=== PATIENT | female | born 1965 | race Caucasian/White ===

== ENCOUNTER 2018-08-27 10:27 | Emergency (ER) | payer BC ==
[2018-08-27 10:49] VITALS: BP 115/73
--- NOTE | 2018-08-27 11:16 | UC ---
Ear Complaint HPI - HPI Summary HPI Summary: This is a 53-year-old female who is hypothyroid, who complains of feeling of wax in her right ear. She describes this as being under water. This is been going on for 2 days and hasn't changed. She denies recent upper respiratory infection or any trauma to the ear. Her vital signs are stable. - History of Current Complaint Chief Complaint: UCEar Stated Complaint: PLUGGED EAR Time Seen by Provider: 08/27/18 11:13 Hx Obtained From: Patient Pain Intensity: 0 - Allergies/Home Medications Allergies/Adverse Reactions: Allergies Allergy/AdvReac Type Severity Reaction Status Date / Time No Known Allergies Allergy Verified 08/27/18 10:50 Home Medications: Home Medications Folika-D 1,000-94.375 Mcg Tab 1 tab PO DAILY 08/27/18 [History Confirmed ] Levothyroxine TAB* [Synthroid TAB*] 100 mcg PO DAILY 08/27/18 [History Confirmed 08/27/18] Solifenacin Succinate [Vesicare] 5 mg PO DAILY 08/27/18 [History Confirmed 08/27] PMH/Surg Hx/FS Hx/Imm Hx - Additional Past Medical History Additional PMH: Past medical history includes gastric bypass approximately 15 years ago and cholecystectomy. Family history: Hypertension, cardiovascular disease, diabetes mellitus. 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 Previously Healthy: Yes - Surgical History Surgical History: Yes Surgery Procedure, Year, and Place: gastric bypass [facility] - Social History Alcohol Use: None Substance Use Type: None Smoking Status (MU): Never Smoked Tobacco Review of Systems All Other Systems Reviewed And Are Negative: Yes ENT: Positive: Other - right ear discomfort, feeling of water in her ear. Respiratory: Positive: Negative Cardiovascular: Positive: Negative Gastrointestinal: Positive: Negative Genitourinary: Positive: Negative Is Patient Immunocompromised?: No Physical Exam - Summary Physical Exam Summary: Appearance: The patient is well-appearing, is in no pain or distress, and is well-nourished. Eyes: Conjunctiva are clear. Pupils are equal and reactive to light and accommodation. Extra ocular muscle movement is intact. ENT: The hearing is grossly normal, the pharynx is normal, and the TM is normal on the left; fluid level behind TM on the right. There is no muffled or hoarse voice. No stridor. Neck: The neck is supple and there is no lymphadenopathy. Respiratory: The chest is nontender to palpation and without crepitus. The lungs are clear, there are normal breath sounds, and there is no respiratory distress. No wheezes, rales or rhonchi. Cardiovascular: Heart sounds reveal a regular rate and rhythm. There are no clicks, rubs or murmurs. There are no carotid bruits or thrills. Circulation is grossly intact. Abdomen: The abdomen is soft and nontender. There is no organomegaly. Bowel sounds are present and within normal limits. No point tenderness at McBurneys point. Musculoskeletal: Strength is intact. The patient moves all extremities. Neurological: The patient is alert. Motor and sensory are examination grossly intact. Speech is normal. Psychological: The patient displays age appropriate behavior Skin: Negative for rashes. Triage Information Reviewed: Yes Vital Signs: Initial Vital Signs Temp 98 F 08/27/18 10:47 Pulse 98 08/27/18 10:47 Resp 18 08/27/18 10:47 BP 115/73 08/27/18 10:47 Pulse Ox 100 08/27/18 10:47 Ear Complaint Course/Dx - Course Course Of Treatment: This is a 53-year-old female who is hypothyroid, who complains of feeling of wax in her right ear. She describes this as being under water. This is been going on for 2 days and hasn't changed. She denies recent upper respiratory infection or any trauma to the ear. Physical examination shows a air-fluid level behind the right tympanic membrane. There is no evidence of cerumen. Medications are been reviewed. Hypertensive status reviewed. The patient knows to return if she has any increased pain or new or increasing difficulty hearing. My diagnosis is a serous otitis media on the right. - Differential Dx/Diagnosis Differential Diagnosis/HQI/PQRI: Foreign Body, Otitis Externa, Otitis Media, Perforated TM Provider Diagnosis: Ear ache Discharge - Sign-Out/Discharge Documenting (check all that apply): Patient Departure All imaging exams completed and their final reports reviewed: No Studies - Discharge Plan Condition: Stable Disposition: HOME Patient Education Materials: Cerumen Impaction (ED), Serous Otitis Media (ED) Referrals: Danita Lucero MD [Primary Care Provider] - Additional Instructions: WE DISCUSSED: PLEASE SEEK CARE AT THE EMERGENCY DEPARTMENT IF SYMPTOMS WORSEN OR IF NEW SYMPTOMS DEVELOP. FOLLOW UP WITH YOUR PRIMARY CARE PHYSICIAN IF CONDITION CONTINUES BEYOND 3 DAYS WITHOUT IMPROVEMENT. We are open from 7 a.m. to 10 p.m. Call us with any questions or concerns. YOUR DIAGNOSIS IS: FLUID BEHIND YOUR RIGHT EAR DRUM; no wax was seen. YOUR PRESCRIPTION RECOMMENDATION IS: none. OTHER INSTRUCTIONS: STAND UNDER SHOWER STREAM TO LOOSEN SECRETIONS. STAND UNDER SHOWER STREAM TO LOOSEN SECRETIONS. USE A VAPORIZOR. STAY AWAY FROM ANY SMOKE OR IRRITANTS. USE SALINE NASAL SPRAY TO KEEP FLOW OF MUCOUS FROM NOSTRILS AND SINUSES. CONSIDER USING NETI POT TO HELP WITH ALLERGIES AND CONGESTION IN THE NOSE. USE THIS THREE TIMES A WEEK. YOU CAN GET THIS AT [facility] IN [place] OR VARIOUS DRUGSTORES. DRINK LOTS OF WARM FLUIDS WARM WATER GARGLES, WITH TSP OF SALT PER 8 OUNCES OF WATER, GARGLE FOR A FEW SECONDS AND SPIT OUT; GARGLE AND SPIT OUT; EVERY THREE HOURS. AND/OR: WARM WATER OR TEA, HONEY AND LEMON; 2-3 CUPS A DAY. RE-CHECK IN 1O DAYS, NEEDED, IF YOU ARE NOT IMPROVING. RETURN HERE OR SEE YOUR PHYSICIAN. RE-CHECK SOONER IF INCREASED PAIN OR TEMPERATURE. - Billing Disposition and Condition Condition: STABLE Disposition: Home
== END 2018-08-27 11:36 | disposition home or self-care (01) ==
LOC: UCEAST 10:27
DX: H92.01 Otalgia, right ear (principal)
CPT/HCPCS: 99201; G0463